=== PATIENT | female | born 1940 | race Caucasian/White ===

== ENCOUNTER 2021-09-29 01:07 | Emergency (ER) | payer OTHER ==
[~2021-09-29 01:07] MED LIST: CIPRO500 MG PO; MACROBID100 MG PO; PYRIDIUM200 MG PO; VENTOLIN HFA IN18 GM INH
[2021-09-29 01:54] LABS: BASOPHIL 0.5 % (0-2); EOSINOPHIL 0.9 % (0-7); LYMPHOCYTE 17.5 % (15-48); MCH 29.7 pg (25.0-31.0); MCHC 32.6 g/dL (32.0-36.0); MCV 91.1 fL (78.0-100.0); MONOCYTE 4.6 % (0-12); NEUTROPHIL 76.2 % (41-80); NRBC 0; PLT 186 K/uL (150-400); RBC 5.05 M/uL (4.20-5.40); RDW 14.1 % (11.5-14.0); WBC 10.4 K/uL (4.0-10.5)
[2021-09-29 02:05] LABS: BILIRUBIN NEGATIVE (NEGATIVE); BLOOD NEGATIVE Ery/uL (NEGATIVE); CLARITY CLEAR (CLEAR); COLOR YELLOW (YELLOW); GLUCOSE (U) NORMAL (NORMAL); LEUKOCYTES NEGATIVE Leu/uL (NEGATIVE); NITRITE NEGATIVE (NEGATIVE); PROTEIN NEGATIVE (NEGATIVE); SPECIFIC GRAVITY 1.025 (1.001-1.030); UROBILINOGEN 0.2 mg/dL (0.2-1.0)
[2021-09-29 02:06] LABS: BUN/CREAT RATIO (CALC) 38.2 RATIO; CREATININE 0.68 mg/dL (0.51-0.95); POTASSIUM 4.4 mmol/L (3.5-5.1)
== END 2021-09-29 15:50 | disposition home or self-care (01) ==
LOC: FER 01:07
PROVIDERS: Internal Medicine
DX: S01.81XA Laceration without foreign body of other part of head, initial encounter (principal); S00.12XA Contusion of left eyelid and periocular area, initial encounter; F03.90 Unspecified dementia, unspecified severity, without behavioral disturbance, psychotic disturbance, mood disturbance, and anxiety; Z88.0 Allergy status to penicillin; Z86.73 Personal history of transient ischemic attack (TIA), and cerebral infarction without residual deficits; W19.XXXA Unspecified fall, initial encounter; Y92.129 Unspecified place in nursing home as the place of occurrence of the external cause
CPT/HCPCS: 36415; 70450; 70486; 71045; 73502; 80048; 81003; 85025

== ENCOUNTER 2022-02-11 22:50 | Emergency (ER) | payer OTHER ==
[2022-02-11 23:13] LABS: BASOPHIL 0.4 % (0-2); EOSINOPHIL 0.4 % (0-7); HCT 47.8 % (37.0-47.0); HGB 15.2 g/dl (12.5-16.0); LYMPHOCYTE 9.3 % (15-48); MCH 29.7 pg (25.0-31.0); MCHC 31.8 g/dL (32.0-36.0); MCV 93.5 fL (78.0-100.0); MONOCYTE 4.7 % (0-12); MPV 12.2 fL (6.0-9.5); NEUTROPHIL 84.9 % (41-80); NRBC 0; PLT 118 K/uL (150-400); RBC 5.11 M/uL (4.20-5.40); RDW 14.4 % (11.5-14.0); WBC 11.8 K/uL (4.0-10.5)
[2022-02-11 23:36] LABS: ALBUMIN 3.4 g/dL (3.4-5.0); BILIRUBIN - TOTAL 0.5 mg/dL (0.2-1.0); BUN/CREAT RATIO (CALC) 28.9 RATIO; CREATININE 0.83 mg/dL (0.51-0.95); GLOBULIN (CALCULATION) 3.6 g/dL; POTASSIUM 4.7 mmol/L (3.5-5.1)
[2022-02-12 01:22] LABS: BILIRUBIN NEGATIVE (NEGATIVE); BLOOD NEGATIVE Ery/uL (NEGATIVE); CLARITY CLEAR (CLEAR); COLOR YELLOW (YELLOW); GLUCOSE (U) NORMAL (NORMAL); LEUKOCYTES 3+ Leu/uL (NEGATIVE); NITRITE NEGATIVE (NEGATIVE); PROTEIN NEGATIVE (NEGATIVE)
[2022-02-12] MEDS ORDERED: BACTRIM DS TAB1 EACH PO (01:26)
[2022-02-12 01:35] LABS: BACTERIA 2+; URINARY WBC 20-50
[2022-02-12 01:36] LABS: SQUAMOUS EPITHELIAL CELLS RARE
== END 2022-02-12 03:10 | disposition home or self-care (01) ==
LOC: FER 22:50
PROVIDERS: Emergency Medicine
DX: S02.2XXA Fracture of nasal bones, initial encounter for closed fracture (principal); S09.90XA Unspecified injury of head, initial encounter; N39.0 Urinary tract infection, site not specified; F03.90 Unspecified dementia, unspecified severity, without behavioral disturbance, psychotic disturbance, mood disturbance, and anxiety; W19.XXXA Unspecified fall, initial encounter; Y93.89 Activity, other specified; Y92.129 Unspecified place in nursing home as the place of occurrence of the external cause
CPT/HCPCS: 36415; 70450; 71250; 72125; 80053; 81001; 84484; 85025; 87088; 93005; J0696; J1885; J7030

== ENCOUNTER 2022-02-12 08:43 | Emergency (ER) | payer OTHER ==
[~2022-02-12 08:43] MED LIST changes: +BACTRIM DS TAB1 EACH PO
== END 2022-02-12 14:32 | disposition home or self-care (01) ==
LOC: FER 08:43
DX: S01.111A Laceration without foreign body of right eyelid and periocular area, initial encounter (principal); Z88.0 Allergy status to penicillin; F03.90 Unspecified dementia, unspecified severity, without behavioral disturbance, psychotic disturbance, mood disturbance, and anxiety; W19.XXXA Unspecified fall, initial encounter; Y92.129 Unspecified place in nursing home as the place of occurrence of the external cause
CPT/HCPCS: 70450; 96374; J1885

== ENCOUNTER 2022-02-26 22:02 | Emergency (ER) | payer OTHER | END 2022-02-27 00:03 | disposition home or self-care (01) | LOC: FER 22:02 | DX: S02.2XXA Fracture of nasal bones, initial encounter for closed fracture (principal); S00.11XA Contusion of right eyelid and periocular area, initial encounter; S09.90XA Unspecified injury of head, initial encounter; F03.90 Unspecified dementia, unspecified severity, without behavioral disturbance, psychotic disturbance, mood disturbance, and anxiety; Z23 Encounter for immunization; W18.30XA Fall on same level, unspecified, initial encounter; Y92.129 Unspecified place in nursing home as the place of occurrence of the external cause | CPT/HCPCS: 70450; 70486; 71045; 72125; 90471; 90715 ==